=== PATIENT | female | born 1980 | race Caucasian/White ===

== ENCOUNTER 2017-07-19 13:43 | Inpatient (IN) | payer MEDICAID, SELFPAY ==
[2017-07-19] VITALS (7 sets, daily range): BP systolic 111–134; BP diastolic 64–73; PULSE 70–104; RESP 18; TEMP 36.4–36.8; O2SAT 98–100; BMI 21.2
--- NOTE | 2017-07-19 14:07 | HP.PCM_ITS ---
Problem List (1) Alcohol withdrawal Status: Acute (2) Tobacco dependence Status: Chronic (3) Anxiety Status: Chronic (4) Depression Status: Chronic (5) History of deep venous thrombosis or pulmonary embolus Status: Chronic (6) Migraine Status: Chronic (7) Marijuana abuse Status: Chronic History of Present Illness Date of Admission: 07/19/17 Chief Complaint: Alcohol withdrawal The patient is a 36 year old F who presents through [facility] program due to alcohol withdrawal. Patient states she has been drinking 15-24 beers per day with last drink last evening, 07/18/2017 at 10 PM. Patient states she occasionally drinks liquor if she runs out of beer but primarily drinks beer. Patient states she has been abusing alcohol for approximately 1 year. She states she initially began using alcohol after going through a difficult time caring for an ill family member. Patient also admits to smoking a bowl of marijuana daily. Patient is a 1-2 pack per day smoker. Her other past medical history includes anxiety, depression, history of PE/DVT (thought to be provoked by oral contraceptives, heavy tobacco use and extensive travel at the time of diagnosis), history of migraines. Patient states she has lost approximately 20 pounds in the last 2 months. She states she has had a poor appetite and has been more active than normal. She currently complains of nausea, abdominal cramping, anxiety. Past Medical History Past Medical History (Chronic Problems): Chronic Problems Tobacco dependence (Chronic) Anxiety (Chronic) Depression (Chronic) History of deep venous thrombosis or pulmonary embolus (Chronic) Migraine (Chronic) Marijuana abuse (Chronic) Surgical History: - - Left oophorectomy Psychiatric History: Anxiety, Depression [employer] History: No pertinent [employer] history Lives: With Family - and 5 children Smoking Status: Current every day smoker Tobacco Use: Cigarettes - 1-2 packs per day Drugs: Marijuana - *Family History Maternal History Items: Hypertension, Renal Disease Paternal History Items: Hypertension Review of Systems Constitutional: Reports: Malaise, Weight Change - -20 pounds in 2 months, Fatigue HEENT: Denies: Head Aches, Sinus Congestion, Sinus Drainage Cardiovascular: Denies: Chest Pain, Light Headedness, Palpitations Respiratory: Denies: Cough, Shortness of breath at rest, Sputum production Gastrointestinal: Reports: Nausea, - - Abdominal cramping. Denies: Abdominal Pain, Constipation, Diarrhea Genitourinary: Denies: Dysuria Musculoskeletal: Denies: Joint Pain, Joint Tenderness Skin: Denies: Rash, Wounds Neurological: Denies: Numbness, Tingling, Focal weakness Psychiatric: Reports: Anxiety, Depression Hematologic/ Lymphatic: Denies: Easy Bruising, Easy Bleeding VTE Information - Inpt Only VTE Present on Admission: No VTE Mechan Device Prophylaxis: None Reason prophylaxis not ordered:: Treatment Not Indicated Patient Problems: Active and Suspected Problems Alcohol withdrawal (Acute) - Physical Exam General: Alert, Oriented x3, Cooperative HEENT: Atraumatic, PERRLA, EOMI, Normocephalic Neck: Supple, No JVD, Negative Carotid Bruits Lungs: Clear to auscultation, Normal air movement Cardiovascular: Regular rate, Regular Rhythm, Normal S1, Normal S2, No murmurs Abdomen: Bowel Sounds Present, Soft, Non Tender, Non-Distended Extremities: No clubbing, No cyanosis, No edema, Capillary Refill Less than 3 Seconds Skin: No rashes, No breakdown Musculoskeletal: No Tenderness to Palpation of Joints or Extremities Neurological: Cranial nerves II-XII grossly intact, Neuro grossly intact Psych/Mental Status: Normal Affect, Appropriate Assessment/Plan Active and Suspected Problems Alcohol withdrawal (Acute) 1. Acute alcohol withdrawal-medical stabilization per protocol. Thiamine, folic acid and multivitamin supplementation. Check mag, phosphorus. Zofran as needed for nausea. Obtain urine drug screen. Obtain alcohol blood level. Obtain CMP. 2. Marijuana abuse-encouraged cessation. 3. Tobacco dependence-encourage smoking cessation. Nicotine replacement patch. 4. Anxiety/depression-continue home Effexor regimen. Patient attends outpatient counseling. Encouraged continued outpatient counseling. 5. History of PE/DVT-thought to be provoked by oral contraceptives, heavy tobacco use and extensive travel at the time of diagnosis. No further recurrence. 6. History of migraines-not on preventative regimen. 7. Protein calorie malnutrition-patient reports 20 pound weight loss in the past 2 months. Nutrition consult. DVT prophylaxis-SCDs, Lovenox. This patient was seen by SEBASTIAN Reid under the supervision of Dr. Carballo.
[2017-07-19] MEDS: Lactated Ringers 1,000 ML 125 ML IV (14:32)
[2017-07-19 14:37] LABS: Absolute Lymphocyte Count 2.89 X10^3/ul (0.83-4.51); Absolute Neutrophil Count 5.3 X10^3/uL (2.0-7.7); Basophil# 0.08 X10^3/uL; Basophil% 0.8 % (0-1); Eosinophil# 0.08 X10^3/uL; Eosinophils% 0.8 % (0-5); Hematocrit 43.2 % (37-47); Hemoglobin 14.5 g/dl (12.0-15.0); Lymphocyte # 2.89 X10^3/ul (4.0); Lymphocyte % 30.4 % (19-41); Mean Corp Hgb Conc 33.6 g/gl (32-36); Mean Corpuscular Hgb 33.2 pg (27.0-32.0); Mean Corpuscular Volume 98.9 fL (81-99); Mean Platelet Vol. 9.3 fl (6.2-12.0); Monocyte# 1.12 X10^3/uL; Monocyte% 11.8 % (0-10); Neutrophil # 5.32 X10^3/uL (2.7-7.7); Platelet Count 242 K/mm3 (150-450); RBC Distribution Width CV 12.8 % (11.6-14.6); RBC Distribution Width SD 45.6 fl (35.1-43.9); Red Blood Count 4.37 M/mm3 (4.2-5.4); White Blood Count 9.5 K/mm3 (4.4-11.0)
[2017-07-19 14:38] LABS: POSITIVE COUNT NO; POSITIVE DIFFERENTIAL NO; POSITIVE MORPHOLOGY NO
[2017-07-19] MEDS: QUEtiapine 25 MG Tablet PO (14:39)
[2017-07-19] MEDS: chlordiazePOXIDE 25 MG Capsule PO ×2 (14:39→20:26)
[2017-07-19] MEDS: Ondansetron ODT 4 MG Tablet PO (14:39)
[2017-07-19] MEDS: Acetaminophen 500 MG Tablet PO (14:40)
[2017-07-19 14:45] LABS: Prothrombin Time (Protime)PT. 12.9 SECONDS (11.7-14.9)
[2017-07-19 14:48] LABS: AST(SGOT) 19 U/L (15-37); Alanine Aminotransfer ALT/SGPT 20 U/L (13-56); Albumin, Serum 3.8 g/dL (3.2-5.0); Alkaline Phosphatase 57 U/L (45-117); Anion Gap 5 (5-15); BUN 9 mg/dL (7-18); BUN/Creat Ratio 12.2 RATIO (10-20); Calcium,Total 8.7 mg/dL (8.5-10.1); Chloride 105 mmol/L (98-107); Creatinine, Serum 0.74 mg/dL (0.55-1.02); EST Glomerular Filtration Rate 95 mL/min (>60); Est Glom Filt Rate - Afr Amer 114 mL/min (>60); Estimated Creatinine Clearance 91.63 ml/min; Globulin 3.9 g/dL (2.2-4.2); Glucose 74 mg/dL (74-106); Lipase 227 U/L (73-393); Magnesium 2.2 mg/dL (1.6-2.6); Phosphorus 3.6 mg/dL (2.5-4.9); Protein, Total 7.7 g/dL (6.4-8.2); Sodium Level 139 mmol/L (136-145)
[2017-07-19 14:59] LABS: Pregnancy, Serum, hCG Quali. NEGATIVE Negative (0-9 Nonpreg)
[2017-07-19] MEDS: 0.9% NaCl Peripheral Flush Adult/Peds IV (15:10)
[2017-07-19] MEDS: cloNIDine HCl 0.1 MG Tablet PO ×2 (18:19→22:29)
[2017-07-19] MEDS: LORazepam 1 MG Tablet 2 MG PO (18:23)
[2017-07-19] MEDS: Methocarbamol 750 MG Tablet PO (18:23)
[2017-07-19] MEDS: traZODone 50 MG Tablet PO (22:30)
[2017-07-19] MEDS: Famotidine 20 MG Tablet PO (22:30)
--- NOTE | 2017-07-19 23:50 | NURSING ---
Patient instructed to provided clean catch urine sample the next time she needs to use the bathroom. Supplies set in bathroom and this RN went over instructions on how to do a clean catch urine sample, patient expressed understanding. Awaiting urine sample.
[2017-07-20] VITALS (9 sets, daily range): BP systolic 95–114; BP diastolic 42–72; PULSE 62–80; RESP 14–18; TEMP 36.4–36.9; O2SAT 96–100
[2017-07-20] MEDS: cloNIDine HCl 0.1 MG Tablet PO ×5 (02:41→21:00)
[2017-07-20] MEDS: chlordiazePOXIDE 25 MG Capsule PO ×3 (02:42→16:59)
[2017-07-20 03:05] LABS: Bacteria 0 SEEN /hpf (None Seen); Mucous, Urine 0 SEEN /hpf (<or=2+); Red Blood Cells-Urine 0 SEEN /hpf (0-5); White Blood Cells 0 SEEN /hpf (0-5)
[2017-07-20 03:08] LABS: Color, Urine Yellow (Yellow); Glucose, Dipstick Normal (Normal); Ketone-Dipstick Negative (Negative); Leukocyte Esterase-Dipstick 25 /ul (Negative); Nitrite-Dipstick Negative (Negative); Occult Blood-Urine Negative /ul (Negative); Protein-Dipstick Negative (Negative); Specific Gravity, Urine 1.015 (1.002-1.030); Urine Bilirubin Dipstick Negative (Negative); Urine Clarity Clear (Clear); Urine Urobilinogen Normal (Normal); Urine pH 6.5 (5.0 - 8.0)
[2017-07-20 03:30] LABS: Squamous Epithelial Cells - UA 0-5 SEEN /hpf (5-10)
[2017-07-20 03:40] LABS: Amphetamine Urine VISTA NEGATIVE (<1000 ng/mL); Barbiturate Urine VISTA NEGATIVE (< 200 ng/mL); Benzodiazepine Urine VISTA POSITIVE (< 200 ng/mL); Cocaine Urine VISTA NEGATIVE (< 300 ng/mL); Ecstacy Urine VISTA NEGATIVE (< 500 ng/mL); Methadone Urine VISTA NEGATIVE (< 300 ng/mL); PCP Urine VISTA NEGATIVE (< 25 ng/mL); THC Urine VISTA POSITIVE (< 50 ng/mL); Vista UDS pH Range 6
[2017-07-20] MEDS: LORazepam 1 MG Tablet 2 MG PO (06:09)
[2017-07-20 06:26] LABS: Anion Gap 6 (5-15); BUN 10 mg/dL (7-18); BUN/Creat Ratio 15.4 RATIO (10-20); Chloride 111 mmol/L (98-107); Creatinine, Serum 0.65 mg/dL (0.55-1.02); EST Glomerular Filtration Rate 110 mL/min (>60); Est Glom Filt Rate - Afr Amer 133 mL/min (>60); Estimated Creatinine Clearance 104.32 ml/min; Glucose 95 mg/dL (74-106); Potassium 4.3 mmol/L (3.5-5.1); Sodium Level 144 mmol/L (136-145)
[2017-07-20] MEDS: Venlafaxine XR 75 MG Capsule 225 MG PO (09:35)
[2017-07-20] MEDS: Loratadine 10 MG Tablet PO (09:35)
[2017-07-20] MEDS: Folic Acid 1 MG Tablet PO (09:35)
[2017-07-20] MEDS: Ibuprofen 600 MG Tablet PO ×2 (09:35→18:10)
[2017-07-20] MEDS: Thiamine Hydrochloride 100 MG Tablet PO (09:35)
[2017-07-20] MEDS: Famotidine 20 MG Tablet PO ×2 (09:35→21:00)
[2017-07-20] MEDS: Multivitamins,Ther W-Minerals Tablet 1 TABLET PO (09:35)
[2017-07-20] MEDS: Enoxaparin 40 MG/0.4 ML Syringe SC (09:35)
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
[2017-07-20] MEDS: Methocarbamol 750 MG Tablet PO (11:24)
[2017-07-20] MEDS: hydrOXYzine PAM 25 MG Capsule 50 MG PO (12:16)
--- NOTE | 2017-07-20 12:17 | NURSING ---
pt called out requesting medication for anxiety- prn vistaril given at this time.
[2017-07-20] MEDS: Ondansetron ODT 4 MG Tablet PO (13:38)
[2017-07-20] MEDS: Acetaminophen 500 MG Tablet PO (13:38)
[2017-07-20] MEDS: Dicyclomine 10 MG Capsule 20 MG PO (13:38)
[2017-07-20] MEDS: QUEtiapine 25 MG Tablet PO (18:10)
[2017-07-20] MEDS: 0.9% NaCl Peripheral Flush Adult/Peds IV (21:00)
[2017-07-20] MEDS: traZODone 50 MG Tablet PO (21:00)
[2017-07-21] VITALS (10 sets, daily range): BP systolic 95–107; BP diastolic 52–60; PULSE 62–95; RESP 14–20; TEMP 36.3–37.1; O2SAT 99–100
[2017-07-21] MEDS: chlordiazePOXIDE 25 MG Capsule PO ×3 (01:13→16:51)
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
[2017-07-21] MEDS: Thiamine Hydrochloride 100 MG Tablet PO (08:40)
[2017-07-21] MEDS: Folic Acid 1 MG Tablet PO (08:40)
[2017-07-21] MEDS: Multivitamins,Ther W-Minerals Tablet 1 TABLET PO (08:40)
[2017-07-21] MEDS: Acetaminophen 500 MG Tablet PO (10:12)
[2017-07-21] MEDS: Famotidine 20 MG Tablet PO ×2 (10:28→21:50)
[2017-07-21] MEDS: Enoxaparin 40 MG/0.4 ML Syringe SC (10:28)
[2017-07-21] MEDS: Venlafaxine XR 75 MG Capsule 225 MG PO (10:29)
[2017-07-21] MEDS: Loratadine 10 MG Tablet PO (10:29)
[2017-07-21] MEDS: cloNIDine HCl 0.1 MG Tablet PO ×2 (14:23→21:50)
[2017-07-21] MEDS: traZODone 50 MG Tablet PO (21:50)
[2017-07-22 02:21] VITALS: BP 93/44; PULSE 76; RESP 14; RESP 16; TEMP 36.9; TEMP 37.1; O2SAT 100
[2017-07-22 02:31] VITALS: BP 88/47
[2017-07-22] MEDS: chlordiazePOXIDE 25 MG Capsule PO (05:32)
[2017-07-22] MEDS: cloNIDine HCl 0.1 MG Tablet PO (05:34)
[2017-07-22 07:30] VITALS: O2SAT 99
--- NOTE | 2017-07-22 08:21 | DCINST_ITS ---
- Discharge Diagnoses Current Active Problems: Current Active and Chronic Problems (1) Acute EtOH Withdrawal (2) Tobacco Abuse (3) Anxiety and depression (4) Hx of DVT, PE, Remotely, while on OCPs. (5) Migraines (6) Marijuana abuse You will use the following diet at home:: No restrictions Your food should be the consistency of: Regular Your liquids should be the consistency of: Regular/Thin Discharge Activity: Return to Normal Activity May resume sexual activity in: 10-14 days Weight Bearing Status: Weight bearing as tolerated Call your doctor if you observe: Fever of 101 or Higher, Inability to urinate, Inability to have a bowel movement, Shortness of breath, Dizziness, Fainting spells, Chest pain, Uncontrolled pain Instructions: Signs of Alcohol Addiction (Alcoholism), Understanding Alcoholism , Alcoholism: Myths and Facts, The Impact of Alcoholism, Alcoholism: Getting Help, Alcohol Addiction Allergies/Adverse Reactions: Allergies No Known Allergies Allergy (Verified 07/19/17 14:12) Medications to take at Discharge Loratadine [Claritin] 10 mg PO DAILY 07/19/17 Rizatriptan Benzoate [Maxalt] 10 mg PO 07/19/17 Venlafaxine XR [Effexor Xr] 225 mg PO DAILY 07/19/17 Folic Acid 1 mg PO DAILY@0800 #30 tab 07/22/17 Multivitamins,Ther W-Minerals [Multivitamin With Minerals] 1 tab PO DAILYCM #30 tab 07/22/17 Nicotine [Nicoderm Cq] 21 mg TRANSDERM. DAILY #14 patch 07/22/17 Thiamine Hydrochloride [Vitamin B1] 100 mg PO DAILYCM #30 tab 07/22/17 The following prescriptions were given: Folic Acid 1 mg PO DAILY@0800 #30 tab Multivitamins,Ther W-Minerals [Multivitamin With Minerals] 1 tab PO DAILYCM #30 tab Nicotine [Nicoderm Cq] 21 mg TRANSDERM. DAILY #14 patch Thiamine Hydrochloride [Vitamin B1] 100 mg PO DAILYCM #30 tab Primary Care Physician: Care Physician,No Primary [Primary Care Provider] - Please follow up with your Primary Care Physician in: Please establish and follow-up with primary care to review admit. Please Follow Up With: [facility] When: Please continue with [facility] plan upon discharge. Proposed Discharge Date: 07/22/17
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
[2017-07-22 09:14] VITALS: BP 101/58; PULSE 69; RESP 16; TEMP 36.6; O2SAT 100
[2017-07-22] MEDS: Thiamine Hydrochloride 100 MG Tablet PO (09:17)
[2017-07-22] MEDS: Loratadine 10 MG Tablet PO (09:17)
[2017-07-22] MEDS: Famotidine 20 MG Tablet PO (09:17)
[2017-07-22] MEDS: Venlafaxine XR 75 MG Capsule 225 MG PO (09:18)
[2017-07-22] MEDS: Folic Acid 1 MG Tablet PO (09:21)
[2017-07-22] MEDS: Multivitamins,Ther W-Minerals Tablet 1 TABLET PO (09:21)
[2017-07-22 09:32] VITALS: BP 101/58; PULSE 69; RESP 16; TEMP 36.6
[2017-07-22 09:33] VITALS: BP 101/58; PULSE 69; RESP 16; TEMP 36.6
== END 2017-07-22 10:27 | disposition home or self-care (01) | DRG 435 ==
LOC: MS2 07-20 07:19 → MS3 07-21 14:05
PROVIDERS: Admitting Provider Family Medicine; Visit Provider Family Medicine
DX: F10.239 Alcohol dependence with withdrawal, unspecified (principal); F32.9 Major depressive disorder, single episode, unspecified; F41.9 Anxiety disorder, unspecified; G43.909 Migraine, unspecified, not intractable, without status migrainosus; F12.10 Cannabis abuse, uncomplicated; F17.200 Nicotine dependence, unspecified, uncomplicated; Z86.718 Personal history of other venous thrombosis and embolism; Y90.0 Blood alcohol level of less than 20 mg/100 ml
CPT/HCPCS: 36415; 80048; 80053; 80307; 80320; 81001; 83690; 83735; 84100; 84703; 85025; 85610; 97802; J7120; A4216; G0480